=== PATIENT | female | born 1960 ===

== ENCOUNTER 2019-10-11 00:28 | Outpatient (CLI) | payer SELFPAY ==
[2019-10-11 10:54] LABS: HEMOGLOBIN A1C 5.8 % (4.5-6.2)
[2019-10-11 11:15] LABS: CHOL/HDL RATIO 2.92 (0.00-4.99)
== END 2019-10-11 23:59 | disposition home or self-care (01) ==
LOC: HW HEART 00:28
DX: Z13.6 Encounter for screening for cardiovascular disorders (principal)
CPT/HCPCS: 36415